=== PATIENT | female | born 1995 | race Caucasian/White ===

== ENCOUNTER 2017-05-24 13:15 | Emergency (ER) | payer OTHER ==
[2017-05-24 13:27] VITALS: BP 130/85; PULSE 105; TEMP 98.3; BMI 32.4
--- NOTE | 2017-05-24 13:32 | PDOC ---
History of Present Illness - General Chief Complaint: Facial Droop Stated Complaint: NUMBNESS RIGHT FACE Time Seen by Provider: 05/24/17 13:21 History Source: Patient Exam Limitations: No Limitations - History of Present Illness Initial Comments: 05/24/17 13:26 22 y/o female with right sided facial droop and numbness since last night. Patient noticed that she had a hard time drinking. No headache. Had a recent cold. No tick bite. No chest pain or SOB. No weakness or numbness in extremities. Denies fall or trauma. No blurred vision but right eye not blinking and tearing. Denies rash, BCP. Timing/Duration: reports: constant Severity/Quality: reports: mild Past History - Past Medical History Allergies/Adverse Reactions: Allergies Allergy/AdvReac Type Severity Reaction Status Date / Time Penicillins Allergy Verified 05/24/17 13:19 Home Medications: Ambulatory Orders Cetirizine HCl [Zyrtec -] 10 mg PO PRN PRN 05/24/17 Prednisone [Deltasone -] 20 mg PO BID #10 tablet 05/24/17 Valacyclovir HCl [Valtrex -] 500 mg PO BID #14 tablet 05/24/17 Other medical history: DUST ALLERGIES - Suicide/Smoking/Psychosocial Hx Smoking History: Never smoked Have you smoked in the past 12 months: No Hx Alcohol Use: (social) Substance Use Type: None Review of Systems - Review of Systems Able to Perform ROS?: Yes Is the patient limited Greek proficient: No Constitutional: No: Chills, Fever HEENTM: Yes: Tearing. No: Double Vision, Difficulty Swallowing Respiratory: No: Cough, Shortness of Breath Cardiac (ROS): No: Chest Pain ABD/GI: No: Nausea, Vomiting : No: Dysuria Integumentary: No: Bruising Neurological: Yes: Paresthesia, Tingling. No: Headache Psychiatric: No: Anxiety All Other Systems: Reviewed and Negative *Physical Exam - Vital Signs Last Vital Signs Temp Pulse Resp BP Pulse Ox 98.3 F 105 H 20 130/85 99 05/24/17 13:15 05/24/17 13:15 05/24/17 13:15 05/24/17 13:15 05/24/17 13:15 - Physical Exam General Appearance: Yes: Nourished, Appropriately Dressed. No: Apparent Distress HEENT: positive: EOMI, MARCIAL, Normal ENT Inspection Neck: positive: Trachea midline, Normal Thyroid, Supple. negative: Tender, Rigid Respiratory/Chest: positive: Lungs Clear, Normal Breath Sounds. negative: Chest Tender, Respiratory Distress Cardiovascular: positive: Regular Rhythm, Regular Rate, S1, S2. negative: Edema , JVD, Murmur Vascular Pulses: Femoral (R): 4+, Femoral (L): 4+, Carotid (R): 4+, Carotid (L) : 4+, Dorsalis-Pedis (R): 4+, Doralis-Pedis (L): 4+ Gastrointestinal/Abdominal: positive: Normal Bowel Sounds, Flat, Soft. negative : Tender, Organomegaly, Pulsatile Mass Lymphatic: negative: Adenopathy, Tenderness, Other Musculoskeletal: positive: Normal Inspection. negative: CVA Tenderness Extremity: positive: Normal Capillary Refill, Normal Inspection, Normal Range of Motion Integumentary: positive: Normal Color, Dry, Warm Neurologic: positive: Fully Oriented, Alert, Normal Mood/Affect, Normal Response , Motor Strength 5/5. negative: residence life director II-XII NML intact (right facial droop, forehead lines on right side missing and unable to blink right eye, right 7th cranial nerve deficit, upper and lower extremities 5+/5 b/l) ED Treatment Course - LABORATORY CBC & Chemistry Diagram: 05/24/17 13:30 05/24/17 13:30 - ADDITIONAL ORDERS Additional order review: Laboratory Results 05/24/17 05/24/17 13:30 13:30 Sodium 132 L Potassium 4.0 Chloride 100 Carbon Dioxide 27 Anion Gap 5 L BUN 12 Creatinine 0.6 Creat Clearance w eGFR > 60 Random Glucose 87 Calcium 9.6 Total Bilirubin 0.2 AST 16 ALT 15 Alkaline Phosphatase 76 Total Protein 8.3 Albumin 4.1 Serum , Qual Negative 05/24/17 13:30 RBC 4.55 MCV 80.1 MCHC 32.7 RDW 14.6 MPV 9.3 Neutrophils % 66.0 Lymphocytes % 23.9 Monocytes % 5.2 Eosinophils % 4.3 Basophils % 0.6 - RADIOLOGY Radiology Studies Ordered: Category Date Time Status HEAD CT WITHOUT CONTRAST [CT] Stat CT Scan 05/24/17 13:25 Completed Progress Note - Progress Note Progress Note: 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 CT head: negative Will place on Valtrex and prednisone, with follow up with Neurologist Artificial tears to right eye If worsen return to ER Pt is in agreement with plan *DC/Admit/Observation/Transfer Diagnosis at time of Disposition: Rivas's palsy - Discharge Dispostion Disposition: HOME Condition at time of disposition: Stable Admit: No - Referrals Referrals: Irving Kirk MD [Staff Physician] - - Patient Instructions Printed Discharge Instructions: DI for Rivas's Palsy Additional Instructions: Valtrex 500mg 2x/day for 7 days Prednisone 20 mg 2x/day for 5 days Follow up with Neurologist Dr. Kirk Await Lyme titer If worsen return to ER NIH Stroke Scale - Last Known Well Date/Time & Onset Date Last Known Well: 05/23/17 Time Last Known Well: 20:00 - Initial Evaluation Level of consciousness: Alert Ask patient the month and their age: Answers both correctly Ask patient to open & close eyes; make fist and let go: Obeys both correctly Best gaze (horizontal eye movement): Normal Visual field testing: No visual field loss Facial paresis (Show teeth/raise eyebrows/close eyes tight): Normal symmetrical movement Motor Function: Left Arm: Normal Motor Function: Right Arm: Normal (extends arm 90 (or 45) degrees for 10 seconds without drift Motor Function: Left Leg: Normal (extends leg 30 degrees for 5 seconds without drift) Motor Function: Right Leg: Normal (extends leg 30 degrees for 5 seconds without drift) Limb Ataxia: No ataxia Sensory(Use pinprick test arms,legs,trunk,face/side to side): Normal Best language (Describe picture, name items, read sentences): No Aphasia Dysarthria (read several words): Normal articulation Extinction and Inattention: No abnormality - Total Score NIH Stroke Scale Score: 0
[2017-05-24 13:43] LABS: BASOPHIL 0.6 % (0-2.0); EOSINOPHIL 4.3 % (0-4.5); MCH 26.2 pg (25.7-33.7); MCHC 32.7 g/dl (32.0-36.0); MEAN CELL VOLUME 80.1 fl (80-96); MEAN PLT VOLUME 9.3 fl (7.5-11.1); PLATELET COUNT 291 K/MM3 (134-434); RDW 14.6 % (11.6-15.6); WHITE BLOOD COUNT 8.3 K/mm3 (4.0-10.8)
[2017-05-24 14:02] LABS: ALBUMIN 4.1 g/dl (3.5-5.0); ALK PHOS 76 U/L (32-92); ANION GAP 5 (8-16); BILIRUBIN,TOTAL 0.2 mg/dl (0.2-1.0); CALCIUM 9.6 mg/dl (8.4-10.2); CO2 27 mmol/L (22-28); CREATININE 0.6 mg/dl (0.6-1.3); GLUCOSE,RANDOM 87 mg/dl (74-106); SGOT/AST 16 U/L (10-42); SGPT/ALT 15 U/L (10-40); TOT PROT 8.3 g/dl (6.4-8.3)
== END 2017-05-24 15:00 | disposition home or self-care (01) ==
LOC: FER 13:15
DX: G51.0 Bell's palsy (principal)
CPT/HCPCS: 36415; 70450-TC; 80053; 84703; 85025; 86618; 99284-25